=== PATIENT | male | born 1965 | race Caucasian/White ===

== ENCOUNTER 2017-09-28 13:01 | Inpatient (IN) | payer OTHER ==
[~2017-09-28] VITALS: Ht 170.2 cm; Wt 80.7 kg
[2017-09-28 15:48] LABS: ALKALINE PHOSPHATASE 32 U/L (46-116); ALT/SGPT 27 U/L (16-63); AST/SGOT 24 U/L (15-37); BASOPHIL % 0.4 % (0-2); BILIRUBIN TOTAL 0.38 mg/dL (0.20-1.00); CALCIUM 7.7 mg/dL (8.5-10.1); CARBON DIOXIDE 26.9 mmol/L (21-32); CHLORIDE SERUM 107 mmol/L (98-107); CREATININE SERUM 0.8 mg/dL (0.7-1.3); GFR1 > 60 mL/min; GLUCOSE SERUM 142 mg/dL (74-106); PLATELET COUNT 219 x10^3mcL (130-400); RED CELL DISTRIBUTION WIDTH 13.7 % (11.5-14.5); SODIUM SERUM 141 mmol/L (136-145)
[2017-09-28 16:01] LABS: ALBUMIN 2.8 g/dL (3.4-5.0)
[2017-09-28 16:02] LABS: POTASSIUM SERUM 2.9 mmol/L (3.5-5.1)
[2017-09-28 20:13] VITALS: BP 125/89
[2017-09-28 21:32] VITALS: BP 112/76
[2017-09-28 22:04] LABS: FREE T4 1.1 ng/dL (0.76-1.46); FREE THYROXINE INDEX 2.9 ug/dL (1.4-4.5); T4(THYROXINE) 7.7 ug/dL (4.7-13.3)
[2017-09-28 22:09] LABS: T3 TOTAL 1.17 ng/mL
[2017-09-28 22:11] LABS: PHOSPHOROUS 2.4 mg/dL (2.5-4.9)
[2017-09-28 22:12] LABS: CHOLESTEROL/HDL RATIO 1.8
[2017-09-29 01:51] LABS: CALCIUM 7.9 mg/dL (8.5-10.1); CARBON DIOXIDE 26.2 mmol/L (21-32); CHLORIDE SERUM 107 mmol/L (98-107); CREATININE SERUM 0.7 mg/dL (0.7-1.3); GFR1 > 60 mL/min; GLUCOSE SERUM 131 mg/dL (74-106); POTASSIUM SERUM 3.8 mmol/L (3.5-5.1); SODIUM SERUM 140 mmol/L (136-145)
[2017-09-29 05:14] VITALS: BP 102/66
[2017-09-29 09:30] VITALS: BP 115/83
[2017-09-29 10:06] LABS: BASOPHIL % 0.5 % (0-2); PLATELET COUNT 220 x10^3mcL (130-400)
[2017-09-29 13:03] LABS: UA SPECIFIC GRAVITY 1.015 (1.005-1.035); microscopic required? YES; urine erythrocyte NEGATIVE (NEGATIVE)
[2017-09-29 13:28] LABS: AMPHETAMINE QUAL UR NONE DETECTED (NEG <=1000)
[2017-09-29 14:50] VITALS: BP 110/72
[2017-09-29 17:43] VITALS: BP 108/69
[2017-09-29 21:41] VITALS: BP 109/58
[2017-09-30 05:54] LABS: BASOPHIL % 0.3 % (0-2); PLATELET COUNT 240 x10^3mcL (130-400); RED CELL DISTRIBUTION WIDTH 14.1 % (11.5-14.5)
[2017-09-30 06:22] LABS: CALCIUM 8.2 mg/dL (8.5-10.1); CARBON DIOXIDE 25.8 mmol/L (21-32); CHLORIDE SERUM 107 mmol/L (98-107); CREATININE SERUM 0.8 mg/dL (0.7-1.3); GFR1 > 60 mL/min; GLUCOSE SERUM 119 mg/dL (74-106); PHOSPHOROUS 3.2 mg/dL (2.5-4.9); POTASSIUM SERUM 3.8 mmol/L (3.5-5.1); SODIUM SERUM 139 mmol/L (136-145)
[2017-09-30 09:58] VITALS: BP 130/84
[2017-09-30] MEDS ORDERED: KEFLEX500 M1 PO (13:08)
[2017-09-30] MEDS ORDERED: BD LACTINEX1.4 MG PO (13:08)
[2017-09-30 14:00] VITALS: BP 130/84
[2017-09-30 14:09] VITALS: BP 119/82
== END 2017-09-30 15:11 | disposition home or self-care (01) | DRG 425 ==
LOC: ED 13:01 → DU 18:01
PROVIDERS: Emergency Medicine; ADMIT Family Medicine
DX: E87.6 Hypokalemia (principal); E43 Unspecified severe protein-calorie malnutrition; D68.69 Other thrombophilia; G90.9 Disorder of the autonomic nervous system, unspecified; E11.65 Type 2 diabetes mellitus with hyperglycemia; E83.39 Other disorders of phosphorus metabolism; R00.1 Bradycardia, unspecified; D64.9 Anemia, unspecified; Z68.27 Body mass index [BMI] 27.0-27.9, adult; Z83.3 Family history of diabetes mellitus; Z82.0 Family history of epilepsy and other diseases of the nervous system; N39.0 Urinary tract infection, site not specified
CPT/HCPCS: 82962; 83880; 84439; 90658; J0696; J3475; J3480; J7030; Q0092